=== PATIENT | female | born 1950 | race Caucasian/White ===

== ENCOUNTER → 2019-04-13 06:26 | Outpatient (CLI) | payer MEDICARE, BC, SELFPAY ==
--- NOTE | 2019-04-13 06:28 | DI.MRI.S_ITS ---
PROCEDURE: MR CERVICAL SPINE WO CON INDICATIONS: numbness TECHNIQUE: Noncontrast sagittal T1 spin echo and T2 fast spin echo, sagittal STIR, foraminal oblique sagittal T2 fast spin echo, and axial gradient echo or T2 fast spin echo through the cervical spine. COMPARISON: None. FINDINGS: Image quality: Excellent. Alignment and Curvature: Loss of normal cervical lordosis. There is grade 1 anterolisthesis of C4 on C5. Bone Marrow: Marrow demonstrates normal overall signal. Spinal Cord: Visualized spinal cord has normal size and signal. No cerebellar tonsillar herniation. Paraspinous Soft Tissues: No paravertebral masses. Prevertebral soft tissues are normal in thickness. C2-C3: Preserved disc height. Mild disc desiccation. There is mild posterior disc bulge. The central canal is patent. No foraminal stenosis. C3-C4: Preserved disc height. Mild disc desiccation. There is mild posterior disc bulge. There is increased T2 signal posterior centrally suspicious for annular fissure. Mild bilateral facet arthropathy. The central canal is patent. Mild bilateral foraminal stenosis. C4-C5: Mild loss of disc height and disc desiccation. There is diffuse posterior disc bulge. There is uncovertebral hypertrophy. Moderate right and mild left facet arthropathy. The central canal is mildly narrowed. Moderate right and mild left foraminal stenosis. C5-C6: Mild loss of disc height and disc desiccation. There is diffuse posterior disc bulge and uncovertebral hypertrophy. There is posterior central annular fissure. Mild bilateral facet arthropathy. The central canal is mildly narrowed. Severe left and moderate right left foraminal stenosis. C6-C7: Mild loss of disc height and disc desiccation. There is diffuse posterior disc bulge and uncovertebral hypertrophy. There is posterior central annular fissure. Mild bilateral facet arthropathy. The central canal is mildly narrowed. Severe bilateral left foraminal stenosis. C7-T1: Normal appearance. IMPRESSION: 1. Multilevel degenerative disc disease and facet arthropathy as described. 2. Mild central canal stenosis at C4-C5, C5-C6 and C6-C7. 3. Multilevel foraminal stenosis as described, severe at C6-C7 bilaterally and C5-C6 on the left. Dictated by: Myranda Jauregui M.D. on 04/13/2019 at 9:47 Approved by: Myranda Jauregui M.D. on 04/13/2019 at 11:57
== END ==
PROVIDERS: PCP Family Medicine; Visit Provider Family Medicine
DX: R20.0 Anesthesia of skin (principal); R20.2 Paresthesia of skin; M50.31 Other cervical disc degeneration, high cervical region; M48.02 Spinal stenosis, cervical region; M47.812 Spondylosis without myelopathy or radiculopathy, cervical region
CPT/HCPCS: 72141

== ENCOUNTER → 2019-08-02 09:25 | Outpatient (CLI) | payer MEDICARE, BC, SELFPAY ==
[2019-08-02 12:56] LABS: Adenovirus F 40/41 Not Detected (Not Detect); Astrovirus Not Detected (Not Detect); Campylobacter Not Detected (Not Detect); Clostridium difficile toxin AB Not Detected (Not Detect); Cryptosporidium Not Detected (Not Detect); Cyclospora cayetanensis Not Detected (Not Detect); Entamoeba histolytica Not Detected (Not Detect); Enteroaggregative E.coli Not Detected (Not Detect); Enteropathogenic E.coli Not Detected (Not Detect); Enterotoxigenic E.coli It/st Not Detected (Not Detect); Giardia lamblia Not Detected (Not Detect); Norovirus GI/GII Not Detected (Not Detect); Plesiomonsa shigelloides Not Detected (Not Detect); Rotavirus A Not Detected (Not Detect); Salmonella Not Detected (Not Detect); Sapovirus Not Detected (Not Detect); Shiga-like toxin-prod E.coli Not Detected (Not Detect); Shigella/Enteroinvasive E.coli Not Detected (Not Detect); Vibrio Not Detected (Not Detect); Vibrio cholerae Not Detected (Not Detect); Yersinia enterocolitica Not Detected (Not Detect)
== END ==
PROVIDERS: PCP Family Medicine; Visit Provider Nurse Practitioner
DX: R19.7 Diarrhea, unspecified (principal)
CPT/HCPCS: 87507

== ENCOUNTER → 2019-12-04 11:12 | Outpatient (CLI) | payer MEDICARE, BC, SELFPAY ==
[2019-12-05 21:38] LABS: COVID19 Sendout Not Detected (Not Detect)
== END ==
PROVIDERS: PCP Family Medicine; Visit Provider Family Medicine
DX: Z01.812 Encounter for preprocedural laboratory examination (principal)
CPT/HCPCS: 87635

== ENCOUNTER → 2021-03-19 09:23 | Outpatient (CLI) | payer MEDICARE, BC, SELFPAY ==
[2021-03-19 12:18] LABS: COVID-19 CEPHEID PCR (VTM/NP) Negative (Negative)
== END ==
PROVIDERS: PCP Family Medicine; Visit Provider Physician Assistant
DX: Z20.822 Contact with and (suspected) exposure to COVID-19 (principal); Z01.812 Encounter for preprocedural laboratory examination
CPT/HCPCS: C9803; U0003

== ENCOUNTER → 2021-09-03 14:03 | Outpatient (CLI) | payer MEDICARE, BC, SELFPAY | PROVIDERS: PCP Family Medicine; Visit Provider Student in an Organized Health Care Education/Training Program | DX: N34.3 Urethral syndrome, unspecified (principal) | CPT/HCPCS: 87086 ==

== ENCOUNTER → 2022-03-27 16:16 | Outpatient (CLI) | payer MEDICARE, BC, SELFPAY ==
--- NOTE | 2022-03-27 16:17 | DI.US.S_ITS ---
PROCEDURE: US PERIPH VENOUS LOW EXTREM LT INDICATIONS: KNEE PAIN/SWELLING. ?DVT OR SEPTIC KNEE W/OUT INJURY TECHNIQUE: Real-time imaging, as well as color and pulse Doppler interrogation, were performed of the lower extremity deep veins from the inguinal ligament to the popliteal fossa. COMPARISON: None. FINDINGS: The common femoral, femoral and popliteal veins are normally compressible, and free of intraluminal thrombus. Color and pulse Doppler demonstrate normal phasic intraluminal flow. There is normal augmentation response to distal compression maneuver. There is a large fluid collection anteriorly in the inferior thigh, knee, upper [place] region measuring 11.6 x 10.8 x 1.7 cm. IMPRESSION: 1. No evidence DVT, left lower extremity. 2. Large anterior fluid collection of uncertain etiology. Comment: Preliminary findings were reported by the inventory control associate to the referring provider at the time of study completion. Dictated by: Gold Martinez M.D. on 03/27/2022 at 18:27 Approved by: Gold Martinez M.D. on 03/27/2022 at 18:29
== END ==
PROVIDERS: PCP Family Medicine; Referring Provider Registered Nurse; Visit Provider Registered Nurse
DX: M25.462 Effusion, left knee (principal)
CPT/HCPCS: 93971

== ENCOUNTER → 2022-04-10 12:30 | Outpatient (CLI) | payer MEDICARE, BC, SELFPAY ==
--- NOTE | 2022-04-10 12:33 | DI.RAD.S_ITS ---
PROCEDURE: XR KNEE LT 3V INDICATIONS: LEFT KNEE PAIN TECHNIQUE: 3 views of the knee were acquired. COMPARISON: None. FINDINGS: Bones: No fractures or dislocations. No suspicious bony lesions. Soft tissues: No joint effusion. Calcification within the medial and lateral compartments. IMPRESSION: 1. Chondrocalcinosis. Differential diagnosis includes but is not limited to hemochromatosis, hyperparathyroidism and CPPD. 2. No acute fracture. No osseous lesion. If symptoms and/or clinical suspicion for pathology persist, further assessment with repeat, or advanced imaging (e.g., CT, MRI, or bone scan) may be helpful for further assessment. Dictated by: Lida Coburn M.D. on 04/10/2022 at 15:25 Transcribed by: TIM on 04/10/2022 at 15:26 Approved by: Lida Coburn M.D. on 04/10/2022 at 15:39
== END ==
PROVIDERS: PCP Student in an Organized Health Care Education/Training Program; Referring Provider Student in an Organized Health Care Education/Training Program; Visit Provider Student in an Organized Health Care Education/Training Program
DX: M11.262 Other chondrocalcinosis, left knee (principal); M25.562 Pain in left knee
CPT/HCPCS: 73562

== ENCOUNTER → 2022-05-22 09:33 | Outpatient (CLI) | payer MEDICARE, BC, SELFPAY ==
--- NOTE | 2022-05-22 | DI.RAD.S_ITS ---
PROCEDURE: XR CHEST 2V INDICATIONS: Personal history of nicotine dependence TECHNIQUE: 2 views of the chest were acquired. COMPARISON: None. FINDINGS: Surgical changes and devices: Surgical clips projecting over the right chest. Lungs and pleura: Mild right lower lung opacity. No pleural effusions. Mediastinum: Heart size is normal. Bones and chest wall: No suspicious bony abnormalities. Soft tissues appear unremarkable. IMPRESSION: Mild opacity in the right lower lung could represent early airspace disease versus atelectasis. Consider future imaging surveillance to assess for resolution. Dictated by: Chang Kidd M.D. on 05/22/2022 at 10:17 Approved by: Chang Kidd M.D. on 05/22/2022 at 10:18
== END ==
PROVIDERS: PCP Student in an Organized Health Care Education/Training Program; Referring Provider Student in an Organized Health Care Education/Training Program; Visit Provider Student in an Organized Health Care Education/Training Program
DX: R91.8 Other nonspecific abnormal finding of lung field (principal); Z87.891 Personal history of nicotine dependence
CPT/HCPCS: 71046

== ENCOUNTER → 2022-06-03 09:03 | Outpatient (CLI) | payer MEDICARE, BC, SELFPAY | PROVIDERS: PCP Student in an Organized Health Care Education/Training Program; Visit Provider Physician Assistant Medical | DX: R30.0 Dysuria (principal) | CPT/HCPCS: 87077; 87086; 87186 ==

== ENCOUNTER → 2022-06-10 07:37 | Outpatient (CLI) | payer MEDICARE, BC, SELFPAY | PROVIDERS: PCP Student in an Organized Health Care Education/Training Program; Visit Provider Nurse Practitioner Family | DX: R30.0 Dysuria (principal) | CPT/HCPCS: 87210 ==

== ENCOUNTER → 2022-06-21 09:52 | Outpatient (CLI) | payer MEDICARE, BC, SELFPAY | PROVIDERS: PCP Student in an Organized Health Care Education/Training Program; Visit Provider Registered Nurse | DX: R10.9 Unspecified abdominal pain (principal) | CPT/HCPCS: 87086 ==

== ENCOUNTER → 2023-10-08 10:04 | Outpatient (CLI) | payer MEDICARE, BC, SELFPAY ==
--- NOTE | 2023-10-08 10:06 | DI.RAD.S_ITS ---
PROCEDURE: XR TOE RT MIN 2V INDICATIONS: pain/heat/swelling to great toe joint TECHNIQUE: 3 views of the great toe(s) acquired. COMPARISON: None. FINDINGS: Bones: No fractures or dislocations. Osteoarthritic changes are noted involving right foot most notably at 1st MTP joint and 1st interphalangeal joint. Radiolucency involving dorsal and medial aspect of 1st metatarsal head and adjacent 1st proximal phalangeal base is seen. No suspicious bony lesions. Soft tissues: Soft tissue swelling over medial aspect of 1st metatarsal head is seen. No suspicious soft tissue densities. IMPRESSION: Great toe osteoarthritis. No acute fracture or dislocation. Soft tissue swelling over dorsal and medial aspect of 1st MTP joint with underlying radiolucencies as described above, concerning for subtle erosive changes possibly from inflammatory arthropathy versus gout. Septic arthritis cannot be entirely excluded. Clinical correlation is recommended. Dictated by: Calvin Berg M.D. on 10/08/2023 at 16:44 Approved by: Calvin Berg M.D. on 10/08/2023 at 16:47
[2023-10-08 11:11] LABS: Add Manual Diff / Slide Review NO; Basophils Absolute Auto 100 /uL (0-100); Basophils Percent Auto 1.1 % (0-2); Eosinophils Absolute Auto 300 /uL (0-450); Eosinophils Percent Auto 3.7 % (2-4); Hematocrit 47.6 % (36-46); Hemoglobin 16.1 g/dL (12.0-16.0); Lymphocytes Absolute Auto 1500 /uL (1100-4500); Lymphocytes Percent Auto 17.8 % (25-40); Mean Corpuscular HGB Conc 33.9 % (30-36); Mean Corpuscular Hemoglobin 34.2 PG (26-34); Monocytes Absolute Auto 900 /uL (0-900); Monocytes Percent Auto 11.5 % (3-14); Neutrophils Absolute Auto 5400 /uL (1500-7000); Neutrophils Percent Auto 65.9 % (50-75); Platelet Count 267 X10^3/uL (150-400); Red Blood Cell Count 4.72 X10^6/uL (4.0-5.2); Red Cell Distribution Width 12.2 % (11.6-14.8); White Blood Cell Count 8.3 X10^3/uL (4.5-11.0)
[2023-10-08 11:33] LABS: Uric Acid 4.3 mg/dL (2.5-6.2)
[2023-10-08 12:46] LABS: Erythrocyte Sedimentation Rate 1 MM/HR (0-20)
== END ==
PROVIDERS: PCP Student in an Organized Health Care Education/Training Program; Referring Provider Physician Assistant; Visit Provider Physician Assistant
DX: M10.9 Gout, unspecified (principal); M19.071 Primary osteoarthritis, right ankle and foot
CPT/HCPCS: 36415; 73660; 84550; 85025; 85651

== ENCOUNTER → 2024-04-17 13:24 | Outpatient (CLI) | payer MEDICARE, BC, SELFPAY ==
[2024-04-17 14:31] LABS: Influenza A - CEPHEID Flu A NEGATIVE (NEGATIVE); Influenza B - CEPHEID Flu B NEGATIVE (NEGATIVE); Respiratory Syncytial Virus Negative (Negative)
[2024-04-17 14:37] LABS: COVID-19 CEPHEID 4-PLEX PCR Negative (Negative)
== END ==
PROVIDERS: PCP Student in an Organized Health Care Education/Training Program; Visit Provider Physician Assistant Surgical
DX: R05.1 Acute cough (principal)
CPT/HCPCS: 0241U

== ENCOUNTER → 2024-08-29 09:49 | Outpatient (CLI) | payer MEDICARE, BC, SELFPAY ==
[2024-08-29 10:33] LABS: Influenza A - CEPHEID Flu A NEGATIVE (NEGATIVE); Influenza B - CEPHEID Flu B NEGATIVE (NEGATIVE); Respiratory Syncytial Virus Negative (Negative)
[2024-08-29 10:34] LABS: COVID-19 CEPHEID 4-PLEX PCR Negative (Negative)
== END ==
PROVIDERS: PCP Student in an Organized Health Care Education/Training Program; Visit Provider Nurse Practitioner Family
DX: R05.1 Acute cough (principal)
CPT/HCPCS: 0241U

== ENCOUNTER → 2024-08-29 10:03 | Outpatient (CLI) | payer MEDICARE, BC, SELFPAY ==
--- NOTE | 2024-08-29 10:06 | DI.RAD.S_ITS ---
PROCEDURE: XR CHEST 2V INDICATIONS: Cough TECHNIQUE: 2 views of the chest were acquired. COMPARISON: [facility], , XR CHEST 2V, 05/22/2022, 9:40. FINDINGS: Surgical changes and devices: Right chest clips. Lungs and pleura: Similar opacity in the lower lungs, greater on the left. No pleural effusions. Mediastinum: Normal heart size. Mediastinal contours are unchanged. Tortuous aorta. Bones and chest wall: Degenerative changes IMPRESSION: Similar lower lung opacities, which may represent infection/inflammation. Differential includes chronic interstitial changes. If symptoms are chronic or patient has PFT abnormalities, consider chest CT follow-up. Dictated by: Chang Kidd M.D. on 08/29/2024 at 17:51 Approved by: Chang Kidd M.D. on 08/29/2024 at 17:52
== END ==
PROVIDERS: Referring Provider Nurse Practitioner Family; Visit Provider Nurse Practitioner Family
DX: R05.1 Acute cough (principal)
CPT/HCPCS: 0241U; 71046

== ENCOUNTER → 2025-05-12 19:14 | Outpatient (ROUT) | payer MEDICARE, BC, SELFPAY | PROVIDERS: Visit Provider Registered Nurse | DX: L03.90 Cellulitis, unspecified (principal); R21 Rash and other nonspecific skin eruption; Z79.899 Other long term (current) drug therapy | CPT/HCPCS: 87070; 87075; 87205 ==